=== PATIENT | male | born 1965 | race Caucasian/White ===

== ENCOUNTER 2025-06-07 12:13 | Outpatient (CLI) | payer OTHER, SELFPAY ==
--- NOTE | ~2025-06-07 | CT_ITS ---
EXAMINATION: CT soft tiss neck [facility] DATE: 06/07/2025 12:42 INDICATION: Localized swelling, mass or lump at the neck TECHNIQUE: Computed tomography (CT) of the neck, chest and abdomen was performed with 100 mL Omnipaque-350 intravenous contrast. Automated exposure control and iterative reconstruction technique were employed. The dose-length product was 1501.25 mGy-cm. COMPARISON: None FINDINGS: Neck: Orbits are normal. Mild mucosal thickening the right maxillary sinus and prominent mucous retention cyst at the inferior left maxillary sinus. Mastoid air cells and middle ear cavities are clear. Submandibular and parotid glands are normal and symmetric. Thyroid gland is unremarkable. Prominent asymmetric enlargement of multiple left cervical lymph nodes. If you've the largest include a 2.7 x 2.2 cm level 2 left jugular chain lymph node near the angle of the mandible, a 2.4 x 2.0 cm left submandibular lymph node, a 2.0 x 1.8 cm lymph node in the posterior cervical triangle and 1.7 x 1.3 cm more caudal jugular chain lymph node over the latter level of the thyroid cartilage. There is a cluster of 3 additional smaller level 2 jugular chain lymph nodes, the largest measuring 1.1 cm in maximal diameter. Which demonstrate an atypical targetoid pattern of concentric enhancement and hypoenhancement. No other abnormal masses or fluid collections identified. The vasculature is patent and normal in caliber . Airway is unremarkable. Mild cervical spondylosis. Chest and abdomen: Mild upper lung and paraseptal predominant emphysema. Dependent groundglass opacities in both lower lobes without septal line thickening to suggest pulmonary edema and most likely related to atelectasis. No suspicious pulmonary nodules, pneumonia or pleural effusion. Heart size is normal. No pericardial effusion. Thoracic aorta is normal in caliber with no dissection. Multiple mediastinal lymph nodes, the largest a prevascular lymph node measuring 4.0 x 2.5 cm positioned along the lateral margin of the left main pulmonary artery. Liver, gallbladder, spleen, pancreas, bilateral adrenal glands and left kidney are normal. There are 3 cysts in the right kidney the larger measuring 2.9 cm. Bowels including the appendix are normal. No pathologically enlarged abdominal lymphadenopathy. Mild thoracic and lumbar spondylosis. IMPRESSION: 1. Prominent left cervical and mediastinal lymphadenopathy concerning for metastatic disease or lymphoma. Recommend ultrasound-guided biopsy of one of the left cervical lymph nodes. Reviewed, dictated and finalized at location A. IMPRESSION: 1. Prominent left cervical and mediastinal lymphadenopathy concerning for metas tatic disease or lymphoma. Recommend ultrasound-guided biopsy of one of the lef t cervical lymph nodes.
[2025-06-07 13:01] LABS: Hematocrit 45.0 % (42.0-52.0); Hemoglobin 14.5 g/dL (14.0-18.0); Immature Granulocyte Percent A 0.3 % (0-0.5); Lymphocytes Absolute Auto 2.37 K/mm3 (0.9-3.2); Mean Corpuscular HGB Conc 32.2 g/dl (32-36); Mean Corpuscular Hemoglobin 27.6 pg (26-34); Mean Corpuscular Volume 85.7 fl (80-100); Nucleated Red Blood Cells Absolute Auto 0.000 K/mm3 (0.0-0.012); Nucleated Red Blood Cells Perc 0.0 % (0.0-0.2); Platelet Count Result 274 k/mm3 (150-375); Red Blood Count 5.25 M/mm3 (4.6-6.20); White Blood Count 9.2 K/mm3 (4.5-10.0)
[2025-06-07 13:07] LABS: Add Urine Microscopic? YES; Appearance Urine Clear (Clear); Glucose Urine UA Negative (Negative); Leukocyte Esterase Ur Negative LEU/UL (Negative); Nitrate Urine Negative (Negative); Non Pathogenic Casts 0-2; Specific Grav Ur 1.020 (1.001-1.035)
[2025-06-07 13:20] LABS: Cholesterol 198 mg/dL (0-200); HDL Direct 36 mg/dL; Triglycerides 123 mg/dL (<150)
[2025-06-07 13:22] LABS: Alanine Aminotransferase 19 U/L (6-50); Albumin Level 4.0 g/dL (3.5-5.1); Alkaline Phosphatase 87 U/L (38-126); Anion Gap 7 mmol/L (4-12); Aspartate Amino Transferase 24 U/L (17-59); Bilirubin,Total 0.5 mg/dL (0.2-1.3); Blood Urea Nitrogen 14 mg/dL (9-20); CRP 1.1 mg/dL (<1.0); Calcium 9.1 mg/dL (8.4-10.2); Carbon Dioxide 25 mmol/L (22-30); Chloride 104 mmol/L (98-107); Estimated Glomerular Filt Rate > 60; Glucose 95 mg/dL (65-110); Potassium 4.1 mmol/L (3.4-5.0); Sodium 136 mmol/L (137-145); Total Protein 7.4 g/dL (6.3-8.2)
[2025-06-07 13:35] LABS: Hemoglobin A1C 5.9 % (<5.7)
[2025-06-07 13:37] LABS: Free T4 Free Thyroxine 0.82 ng/dL (0.78-2.19)
--- OUTSIDE RECORDS SUMMARY | 2025-06-07 13:37 | XMS_ITS | Clinical Summary ---
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 Role Phone Unavailable Primary Care Provider Unavailabl e Allergies No known active allergies Medications No known medications Social History Tobacco Use Types Packs/Day Years Used Date Smoking Tobacco: Every Day Cigarettes Smokeless Tobacco: Never Tobacco Cessation:Ready to Q uit: No Sex and Gender Information Value Date Recorded Sex Assigned at Not on file Legal Sex Male 11:20 AM CDT Gender Identity Not on file Sexual Orientation Not on file Last Filed Vital Signs Vital Sign Reading Time Taken Comments Blood Pressure 130/86 04/10/2020 8:36 AM EDT Pulse 80 04/10/2020 8:36 AM EDT Temperature - - Respiratory Rate 16 04/10/2020 8:36 AM EDT Oxygen Saturation - - Inhaled Oxygen Concentration - - Weight 99.7 kg (219 lb 14.4 oz) 04/10/2020 8:36 AM EDT Height 182.9 cm (6') 04/10/2020 8:36 AM EDT Body Mass Index 29.82 04/10/2020 8:36 AM EDT Plan of Treatment Health Maintenance Due Date Last Done Comments Hepatitis C Screening ages 1 8 to 79 once 1967 MMR VACCINES (1 of 1 - Stand andrew series) 02/01/1968 YEARLY WELLNESS EXAM 1970 DEPRESSION SCREENING 1979 HEPATITIS B VACCINES (1 of 3 - 19+ 3-dose series) 1986 Pneumococcal Vaccine: Peds t o 50 & At-Risk Patients (1 of 2 - PCV) 1986 LIPID TESTING 2002 Colon Cancer Screening 02/01/2012 Zoster Vaccine (Recombinant Vaccine) (1 of 2) 2017 COVID-19 Immunization (1 - 2 -25 season) 2024 Influenza Vaccine 05/05/2025 ADULT TETANUS 04/29/2029 04/29/2019 HEPATITIS A VACCINES Aged Out No long er eligible based on patient's age to complete this topic HIB VACCINES Aged Out No longer eligi ble based on patient's age to complete this topic HPV VACCINES Aged Out No longer eligi ble based on patient's age to complete this topic IPV VACCINES Aged Out No longer eligi ble based on patient's age to complete this topic MENINGOCOCCAL VACCINE Aged Out No merline ondina eligible based on patient's age to complete this topic Meningococcal B Vaccine Aged Out No l onger eligible based on patient's age to complete this topic ROTAVIRUS VACCINES Aged Out No longer eligible based on patient's age to complete this topic
[2025-06-07 13:51] LABS: Prostate Specific Antigen 2.7 ng/mL (< OR = 4.0); Thyroid Stimulating Hormone 0.800 uIU/mL (0.465-4.680)
== END 2025-06-07 12:14 | disposition home or self-care (01) ==
PROVIDERS: PCP Internal Medicine; Visit Provider Internal Medicine
DX: Z01.89 Encounter for other specified special examinations (principal); Z13.29 Encounter for screening for other suspected endocrine disorder; Z13.1 Encounter for screening for diabetes mellitus; Z12.5 Encounter for screening for malignant neoplasm of prostate; R22.1 Localized swelling, mass and lump, neck; R61 Generalized hyperhidrosis; E55.9 Vitamin D deficiency, unspecified; Z13.6 Encounter for screening for cardiovascular disorders; Z13.220 Encounter for screening for lipoid disorders
CPT/HCPCS: 36415; 70491; 71260; 74160; 80053; 80061; 81001; 82306; 83036; 84153; 84439; 84443; 85025; 85652; 86140; G0103; Q9967